=== PATIENT | male | born 1935 | race Caucasian/White ===

== ENCOUNTER 2018-03-02 12:56 | Inpatient (IN) | payer MEDICARE ==
[~2018-03-02] VITALS: Ht 172.7 cm; Wt 74.8 kg
[2018-03-02 13:10] VITALS: BP 138/87
--- NOTE | 2018-03-02 13:49 | Diagnostic Imaging Report ---
EXAM: CT Pelvis Without Intravenous Contrast CLINICAL HISTORY: TRAUMA TECHNIQUE: Axial computed tomography images of the pelvis without intravenous contrast. CTDI is 14.66 mGy and DLP is 455 mGy-cm. One or more of the following dose reduction techniques were used: automated exposure control, adjustment of the mA and/or kV according to patient size, use of iterative reconstruction technique. COMPARISON: No relevant prior studies available. FINDINGS: Bowel: Sigmoid colonic diverticulosis with mild wall thickening. No adjacent inflammatory stranding. No free air or fluid collections. No obstruction. Appendix: No findings to suggest acute appendicitis. Intraperitoneal space: No free air or free fluid. Bladder: Unremarkable. No stones. Reproductive: Diffusely enlarged prostate gland, impressing upon the urinary bladder base. Bones/joints: Degenerative disc space loss in the visualized lower lumbar spine and lumbosacral junction. No acute displaced fracture is identified in the pelvis. No dislocation. Soft tissues: Tiny fat-containing umbilical hernia. Vasculature: Unremarkable. No lower abdominal aortic aneurysm. Lymph nodes: Unremarkable. No enlarged lymph nodes. IMPRESSION: 1. No acute traumatic findings in the pelvis. No displaced fractures identified. 2. Sigmoid colonic diverticulosis with mild wall thickening, which may be related to underdistention versus a low-grade diverticulitis. No adjacent inflammatory stranding. No free air or fluid collections. 3. Prostate hypertrophy.
[2018-03-02] MEDS ORDERED: Sodium Chloride 500ML 500 ML IV ONE (14:00)
--- NOTE | 2018-03-02 14:03 | Emergency Room Report ---
History of Present Illness General Chief Complaint: Multiple Trauma/Fall Source: Patient, Medical Record, EMS Present Illness HPI Patient presents with complaints of possible pelvic pain Patient himself has underlying dementia Reports from the paramedics show that the patient had a possible fall 2 days ago Apparently did not have significant deficit at that time however more recently has become less mobile There was no reports of chest pain however again patient not able to provide appropriate history has some rambling of thought process limits the history of present illness significantly Allergies: Coded Allergies: No Known Allergies (Unverified , 03/02/18) Patient History Limited by: medical condition Past Medical History: see triage record Pertinent Family History: unable to obtain Reviewed Nursing Documentation: PMH: Agreed; PSxH: Agreed Nursing Documentation-PMH Past Medical History: No History, Except For Hx Hypertension: Yes Review of Systems All Other Systems: limited - Other than the ones mentioned in the history of present illness all others are reviewed however they do stay limited due to the patient's mental status Physical Exam Vital Signs Date Time Temp Pulse Resp B/P (MAP) Pulse Ox O2 Delivery O2 Flow Rate FiO2 03/02/18 12:58 98.2 108 16 149/95 94 Nasal Cannula 2.0 98.2 Sp02 EP Interpretation: reviewed, normal General Appearance: mild distress - Appears uncomfortable Head: normocephalic, atraumatic Eyes: bilateral eye PERRL, bilateral eye EOMI ENT: dry mucus membranes Neck: supple, thyroid normal Respiratory: crackles - Both lower lobes Cardiovascular #1: regular rate, rhythm, no edema Gastrointestinal: non tender, soft Musculoskeletal: other - Palpation of the extremities and pelvic rock were negative patient does not follow my commands specifically, however no obvious focal deficit, Neurologic: responsive - Patient attempts to follow commands his speech is somewhat slurred and appears pressured, Skin: other - Poor turgor Lymphatic: no adenopathy Medical Decision Making ER Course Patient's initial imaging study does not reveal any acute fracture however given the patient's general appearance Medical condition Multiple differentials are considered Patient has extensive studies initiated and signed out to oncoming physician Last Vital Signs Date Time Temp Pulse Resp B/P (MAP) Pulse Ox O2 Delivery O2 Flow Rate FiO2 03/02/18 13:10 98.2 101 17 138/87 95 Room Air 98.2 03/02/18 12:58 2.0 Signed Out To: Dr rosenbaum at 14:00 Referrals: Jose Wilkinson MD (PCP) Serentiy Betancourt DO Mar 02, 2018 14:03
--- NOTE | 2018-03-02 14:12 | Emergency Room Report ---
Physical Exam The patient presents after fall 2 days ago with weakness and left hip and leg pain. Please see the above note from Dr. Kennedy. He presents from [facility]. Transporting EMS had Cris Coma Scale of 11. 3 eyes 3 motor 3 verbal. He was agitated and confused with a history of dementia at baseline at the time of her fall 2 days ago he wasn't complaining of any pain. In the morning he couldn't get out of bed and complained of right leg pain and hip pain. His vital signs were good on the way in with O2 sat of 99%. Patient does not answer questions. He's never been to our facility and no other records are available. He had ativan and topical creams in his orders. Vital Signs Date Time Temp Pulse Resp B/P (MAP) Pulse Ox O2 Delivery O2 Flow Rate FiO2 03/02/18 12:58 98.2 108 16 149/95 94 Nasal Cannula 2.0 98.2 Sp02 EP Interpretation: reviewed, normal General Appearance: other - GCS 13 = eyes closed, confused, Chronically Ill Head: normocephalic, atraumatic Eyes: bilateral eye normal inspection, bilateral eye PERRL ENT: dry mucus membranes Neck: full range of motion, supple, no bony tend Respiratory: chest non-tender, lungs clear, normal breath sounds Cardiovascular #1: regular rate, rhythm Cardiovascular #2: 2+ radial (L) Gastrointestinal: normal inspection, normal bowel sounds, soft, no guarding, no rebound, tenderness - minimal, diffuse Genitourinary: no CVA tenderness Musculoskeletal: back normal, other - Painful passive range of motion of bilateral hips. He will not identify where the pain is coming from. Knees appear nontender. Neurologic: alert, responsive, motor strength/tone normal, DTRs symmetric, sensory intact, oriented - X1 Psychiatric: depressed affect - eyes closed Skin: normal inspection, warm/dry Medical Decision Making Diagnostic Impression: Primary Impression: Fall Qualified Codes: W19.XXXA - Unspecified fall, initial encounter Additional Impressions: Left lower lobe pulmonary infiltrate Leukocytosis Qualified Codes: D72.829 - Elevated white blood cell count, unspecified Fluid collection right frontoparietal region - chronic subdural hygroma Dehydration ER Course Patient presents post fall 2 days ago. He is obviously dehydrated at this time. Differential includes fracture, contusion, doubt, acute myocardial infarction, electrolyte imbalance amongst others. The patient be evaluated with CT of the pelvis. Also he will undergo CT the head chest x-ray and labs including lactate and urinalysis. He will receive IV hydration. EKG with a left bundle-branch block. CT pelvis without fracture, has diverticulosis. CT head with a fluid collection right frontoparietal region was likely chronic subdural hygroma. Labs with leukocytosis. Negative lactate and troponin. TSH normal. Due to the reading of the possible infiltrate on the left base and leukocytosis antibiotics are begun. Patient admitted to telemetry Dr. Wilkinson Laboratory Tests Test 03/02/18 14:25 White Blood Count 15.2 K/UL (4.8-10.8) H Red Blood Count 5.74 M/UL (4.70-6.10) Hemoglobin 16.3 G/DL (14.2-18.0) Hematocrit 50.2 % (42.0-52.0) Mean Corpuscular Volume 88 FL (80-99) Mean Corpuscular Hemoglobin 28.4 PG (27.0-31.0) Mean Corpuscular Hemoglobin Concent 32.5 G/DL (32.0-36.0) Red Cell Distribution Width 13.6 % (11.6-14.8) Platelet Count 231 K/UL (150-450) Mean Platelet Volume 7.4 FL (6.5-10.1) Neutrophils (%) (Auto) % (45.0-75.0) Lymphocytes (%) (Auto) % (20.0-45.0) Monocytes (%) (Auto) % (1.0-10.0) Eosinophils (%) (Auto) % (0.0-3.0) Basophils (%) (Auto) % (0.0-2.0) Differential Total Cells Counted 100 Neutrophils % (Manual) 78 % (45-75) H Lymphocytes % (Manual) 12 % (20-45) L Monocytes % (Manual) 10 % (1-10) Eosinophils % (Manual) 0 % (0-3) Basophils % (Manual) 0 % (0-2) Band Neutrophils 0 % (0-8) Platelet Estimate Adequate Platelet Morphology Normal Red Blood Cell Morphology Normal Urine Color [place] Urine Appearance Clear Urine pH 5 (4.5-8.0) Urine Specific [place] 1.020 (1.005-1.035) Urine Protein 1+ (NEGATIVE) H Urine Glucose (UA) Negative (NEGATIVE) Urine Ketones 2+ (NEGATIVE) H Urine Blood 5+ (NEGATIVE) H Urine Nitrite Negative (NEGATIVE) Urine Bilirubin Negative (NEGATIVE) Urine Ictotest Negative (NEGATIVE) Urine Urobilinogen Normal MG/DL (0.0-1.0) Urine Leukocyte Esterase 1+ (NEGATIVE) H Urine RBC 15-20 /HPF (0 - 0) H Urine WBC 2-4 /HPF (0 - 0) Urine Squamous Epithelial Cells Occasional /LPF Urine Bacteria Occasional /HPF (NONE) Sodium Level 144 MMOL/L (136-145) Potassium Level 4.3 MMOL/L (3.5-5.1) Chloride Level 107 MMOL/L (98-107) Carbon Dioxide Level 28 MMOL/L (21-32) Anion Gap 9 mmol/L (5-15) Blood Urea Nitrogen 19 mg/dL (7-18) H Creatinine 1.1 MG/DL (0.55-1.30) Estimate Glomerular Filtration Rate mL/min (>60) Glucose Level 118 MG/DL (74-106) H Lactic Acid Level 2.00 mmol/L (0.4-2.0) Uric Acid 5.6 MG/DL (2.6-7.2) Calcium Level 9.7 MG/DL (8.5-10.1) Total Bilirubin 1.3 MG/DL (0.2-1.0) H Direct Bilirubin 0.2 MG/DL (0.0-0.3) Aspartate Amino Transferase (AST) 45 U/L (15-37) H Alanine Aminotransferase (ALT) 48 U/L (12-78) Alkaline Phosphatase 127 U/L (46-116) H Total Creatine Kinase 684 U/L (26-308) H Creatine Kinase MB 3.3 NG/ML (0.0-3.6) Creatine Kinase MB Relative Index 0.4 Troponin I 0.000 ng/mL (0.000-0.056) Total Protein 8.2 G/DL (6.4-8.2) Albumin 3.9 G/DL (3.4-5.0) Globulin 4.3 g/dL Albumin/Globulin Ratio 0.9 (1.0-2.7) L Lipase 99 U/L (73-393) Thyroid Stimulating Hormone (TSH) 0.947 uiU/mL (0.358-3.740) EKG Diagnostic Results Rate: normal Rhythm: NSR ST Segments: no acute changes - LBBB Rhythm Strip Diag. Results EP Interpretation: yes Rhythm: NSR, no PVC's, no ectopy Chest X-Ray Diagnostic Results Chest X-Ray Diagnostic Results : Chest X-Ray Ordered: Yes # of Views/Limited/Complete: 1 View Indication: Other EP Interpretation: Yes Interpretation: no consolidation, no effusion, no pneumothorax, other - cardiomegally Impression: Other CT/MRI/US Diagnostic Results CT/MRI/US Diagnostic Results #1: Imaging Test Ordered: hip Impression no fx - diverticulosis CT/MRI/US Diagnostic Results #2: Imaging Test Ordered: head Impression 4 mm thick isodense hypodense fluid collection in the right frontoparietal region likely a chronic subdural hygroma. Scattered ventricular and subcortical white matter hypodensities related to chronic small vessel disease. Generalized lying loss. Last Vital Signs Date Time Temp Pulse Resp B/P (MAP) Pulse Ox O2 Delivery O2 Flow Rate FiO2 03/03/18 04:00 98.2 70 17 130/74 (92) 94 98.2 03/02/18 23:54 Room Air 03/02/18 18:18 2.0 Status: improved Disposition: ADMITTED INPATIENT Condition: Serious Referrals: Jose Wilkinson MD (PCP) Andre Myers M.D. Mar 02, 2018 14:11
[2018-03-02 14:52] LABS: HEMATOCRIT 50.2 % (42.0-52.0); HEMOGLOBIN 16.3 G/DL (14.2-18.0); MEAN CORPUSCULAR VOLUME 88 FL (80-99); PLATELET COUNT 231 K/UL (150-450); RED BLOOD COUNT 5.74 M/UL (4.70-6.10); RED CELL DISTRIBUTION WIDTH 13.6 % (11.6-14.8); WHITE BLOOD COUNT 15.2 K/UL (4.8-10.8)
[2018-03-02 14:54] LABS: APPEARANCE,URINE CLEAR; COLOR,URINE AMBER
[2018-03-02 14:55] LABS: BILIRUBIN, URINE NEGATIVE (NEGATIVE); GLUCOSE, URINE (UA) NEGATIVE (NEGATIVE); KETONES,URINE 2+ (NEGATIVE); LEUKOCYTE ESTERASE ,URINE 1+ (NEGATIVE); NITRITE,URINE NEGATIVE (NEGATIVE); PH,URINE 5 (4.5-8.0); PROTEIN,URINE 1+ (NEGATIVE); UROBILINOGEN,URINE NORMAL MG/DL (0.0-1.0)
[2018-03-02 15:03] VITALS: BP 149/86
[2018-03-02 15:11] LABS: ANION GAP 9 mmol/L (5-15); BLOOD UREA NITROGEN 19 mg/dL (7-18); CALCIUM 9.7 MG/DL (8.5-10.1); CARBON DIOXIDE 28 MMOL/L (21-32); CHLORIDE 107 MMOL/L (98-107); CREATININE 1.1 MG/DL (0.55-1.30); POTASSIUM 4.3 MMOL/L (3.5-5.1); SODIUM 144 MMOL/L (136-145)
--- NOTE | 2018-03-02 15:14 | Diagnostic Imaging Report ---
EXAM: CT Head Without Intravenous Contrast CLINICAL HISTORY: Altered mental status TECHNIQUE: Axial computed tomography images of the head/brain without intravenous contrast. CTDI is 70.53 mGy and DLP is 3093 mGy-cm. One or more of the following dose reduction techniques were used: automated exposure control, adjustment of the mA and/or kV according to patient size, use of iterative reconstruction technique. COMPARISON: No relevant prior studies available. FINDINGS: Brain: 4 mm thick isodense/hypodense extra-axial collection along the right frontoparietal region (measured on series 3 image 17), likely a chronic subdural hygroma. Mild generalized parenchymal volume loss, likely age-related. Scattered periventricular and subcortical white matter hypodensities. No mass effect or midline shift. Ventricles: Unremarkable. No ventriculomegaly. Bones/joints: Unremarkable. No acute fracture. Soft tissues: Unremarkable. Sinuses: Unremarkable as visualized. No acute sinusitis. Mastoid air cells: Unremarkable as visualized. No mastoid effusion. IMPRESSION: 1. 4 mm thick isodense/hypodense fluid collection in the right frontoparietal region, likely a chronic subdural hygroma. 2. Scattered periventricular and subcortical white matter hypodensities likely related to chronic small vessel disease changes. 3. Mild generalized cerebral parenchymal volume loss, likely age- related.
[2018-03-02 15:25] LABS: ALANINE AMINOTRANSFERASE 48 U/L (12-78); ALBUMIN 3.9 G/DL (3.4-5.0); ALBUMIN/GLOBULIN RATIO 0.9 (1.0-2.7); ALKALINE PHOSPHATASE 127 U/L (46-116); ASPARTATE AMINO TRANSFERASE 45 U/L (15-37); BILIRUBIN,TOTAL 1.3 MG/DL (0.2-1.0); CKMB 3.3 NG/ML (0.0-3.6); CREATINE KINASE 684 U/L (26-308)
--- NOTE | 2018-03-02 15:25 | Diagnostic Imaging Report ---
EXAM: XR Chest, 1 View CLINICAL HISTORY: Chest pain TECHNIQUE: Frontal view of the chest. COMPARISON: No relevant prior studies available. FINDINGS: Limitations: Exam degraded by rotation. Lungs: Sub-segmental atelectasis versus infiltrate in the left lung base/retrocardiac region. Right lung appears clear. Pleural space: Unremarkable. No pneumothorax. Heart: Cardiac silhouette appears enlarged, however this may be related to the portable film technique. Mediastinum: Unremarkable. Bones/joints: Unremarkable. Vasculature: Atherosclerotic calcifications are noted within the aortic arch. IMPRESSION: Sub-segmental atelectasis versus infiltrate in the left lung base/retrocardiac region.
[2018-03-02 15:27] LABS: BILIRUBIN,DIRECT 0.2 MG/DL (0.0-0.3)
[2018-03-02] MEDS ORDERED: LORAZEPAM1 MG ORAL (15:38)
[2018-03-02] MEDS ORDERED: HYDROCORTISONE30 G2 TP (15:38)
[2018-03-02] MEDS ORDERED: MIRTAZAPINE15 M3 ORAL (15:38)
[2018-03-02] MEDS ORDERED: CICLOPIROX15 GM TP (15:38)
[2018-03-02] MEDS ORDERED: Piperacillin/Tazobactam 3.375 GM in NS 110 ML IVPB ONE (16:00)
[2018-03-02 17:06] VITALS: BP 148/93
[2018-03-02 18:19] VITALS: BP 130/85
[2018-03-02 20:41] VITALS: BP 132/68
[2018-03-02] MEDS: Potassium Chloride 30 MEQ in 1/2 NS 1000ml 1,000 ML IV SCH (22:26)
[2018-03-02] MEDS: Heparin 5000 units/ml inj SUBQ SCH (22:29)
[2018-03-03] VITALS: BP_SYST 132; BP_SYST 134; BP_DIAS 68; BP_DIAS 83
[2018-03-03 04:00] VITALS: BP 130/74
[2018-03-03 06:25] LABS: BASOPHILS % (AUTO) 0.4 % (0.0-2.0); EOSINOPHILS % (AUTO) 1.8 % (0.0-3.0); HEMATOCRIT 44.6 % (42.0-52.0); HEMOGLOBIN 14.7 G/DL (14.2-18.0); LYMPHOCYTES % (AUTO) 14.6 % (20.0-45.0); MEAN CORPUSCULAR VOLUME 88 FL (80-99); NEUTROPHILS % (AUTO) 73.3 % (45.0-75.0); PLATELET COUNT 171 K/UL (150-450); RED BLOOD COUNT 5.05 M/UL (4.70-6.10); RED CELL DISTRIBUTION WIDTH 13.5 % (11.6-14.8); WHITE BLOOD COUNT 10.2 K/UL (4.8-10.8)
[2018-03-03 06:28] LABS: ANION GAP 7 mmol/L (5-15); BLOOD UREA NITROGEN 16 mg/dL (7-18); CALCIUM 8.8 MG/DL (8.5-10.1); CARBON DIOXIDE 27 MMOL/L (21-32); CHLORIDE 108 MMOL/L (98-107); POTASSIUM 4.3 MMOL/L (3.5-5.1); SODIUM 142 MMOL/L (136-145)
[2018-03-03] MEDS ORDERED: Gadavist 7.5mMol/7.5ml vial IV PRN (08:15)
[2018-03-03 08:29] VITALS: BP 132/78
[2018-03-03] MEDS: Heparin 5000 units/ml inj SUBQ SCH ×2 (09:18→20:51)
[2018-03-03 12:05] VITALS: BP 128/75
--- NOTE | 2018-03-03 13:52 | Cardiology Report ---
APPROVED REPORT EKG Measurement Heart [id number] Normal sinus rhythm Left axis deviation Left bundle branch block Abnormal ECG
[2018-03-03] MEDS: Potassium Chloride 30 MEQ in 1/2 NS 1000ml 1,000 ML IV SCH (15:47)
[2018-03-03 16:14] VITALS: BP 134/89
--- NOTE | 2018-03-03 16:45 | History and Physical Report ---
DATE OF ADMISSION: 03/02/2018 CHIEF COMPLAINT: Altered level of consciousness and failure to thrive. HISTORY OF PRESENT ILLNESS: This is an 82-year-old male who I so first this week. This is a new resident to [facility] to [facility] and [facility]. The patient is confused at his baseline. The patient became more confused during the next days and was transferred to the ER. Currently, he is unable to give any further information. The patient had an extensive workup done in the ER, which demonstrated essentially pneumonia. He was started on IV fluids and IV antibiotics and is admitted to regular floor. PAST MEDICAL HISTORY: Organic brain syndrome. MEDICATIONS: Home medications, Loprox cream, hydrocortisone cream, lorazepam p.r.n. and Remeron. ALLERGIES: No known drug allergies. FAMILY HISTORY: Unable to obtain due to his mental status. SOCIAL HISTORY: Unable to obtain due to his mental status. REVIEW OF SYSTEMS: Unable to obtain due to his mental status. PHYSICAL EXAMINATION: GENERAL: This is an elderly cachectic male, who is in no acute distress. VITAL SIGNS: Blood pressure 130/74, pulse 70 and regular, respirations 17, and temperature 98.2 degrees oral. HEENT: The head is normocephalic and atraumatic. Pupils are equal, round, and reactive to light and accommodation consensually. NECK: Supple. Trachea midline. There was no lymphadenopathy or thyromegaly. LUNGS: He has bilateral wheezes. HEART: Regular rate and rhythm without rubs, murmurs, or gallops. ABDOMEN: Soft and nontender. Bowel sounds were active. EXTREMITIES: No clubbing, cyanosis, or edema. NEUROLOGICAL: He is alert, but completely confused and nonverbal. LABORATORY AND ANCILLARY DATA: Yesterday on admission, his white count was elevated at 16,200 and today 10,200, admission hemoglobin 16.3 and today 14.7. Chemistry is unremarkable. Lactic acid on admission 2, trending down to 1.6. Urinalysis, 15 to 20 rbc's, otherwise unremarkable. CT scan of the pelvis, no evidence of fracture. There is prostate hypertrophy. There is evidence of sigmoid colon diverticulosis with mild wall thickening. Head CT without contrast, there is a 4 mm thick hyperdense fluid collection in the right frontoparietal region, likely chronic subdural hygroma. There are scattered periventricular subcortical white matter hypodensities likely related to chronic small vessel disease. There is mild generalized cerebral parenchymal volume loss likely age related. Chest x-ray, subsegmental atelectasis versus infiltrate in the left lung. ASSESSMENT: 1. Suspected pneumonia. 2. Rule out new cerebrovascular event. PLAN: 1. IV antibiotics. 2. IV fluids. 3. Neurology consult. 4. MRI with MRA of the brain with IV contrast. Jose Wilkinson M.D. DR: AC JOB#: [id number] CC:
[2018-03-03 20:00] VITALS: BP 150/97
[2018-03-03] MEDS ORDERED: Tubing IV Secondary IV ONE (21:06)
[2018-03-04 00:10] VITALS: BP 142/61
[2018-03-04 00:11] VITALS: BP 135/95
[2018-03-04 03:58] VITALS: BP 144/91
[2018-03-04] MEDS: Potassium Chloride 30 MEQ in 1/2 NS 1000ml 1,000 ML IV SCH ×2 (04:52→22:04)
--- NOTE | 2018-03-04 08:28 | General Progress Note ---
Assessment/Plan Status Narrative Pneumonia IV ABx AMS - R/O New CVA. MRI ordered. DW Speech Pathologist. Subjective Allergies: Coded Allergies: No Known Allergies (Unverified , 03/02/18) Subjective No new c/o Objective Last 24 Hour Vital Signs Date Time Temp Pulse Resp B/P (MAP) Pulse Ox O2 Delivery O2 Flow Rate FiO2 03/04/18 03:58 97.4 67 18 144/91 (108) 93 97.4 03/04/18 00:11 97.0 83 17 135/95 (108) 95 97.0 03/03/18 22:00 Room Air 03/03/18 20:00 99.0 86 15 150/97 (114) 96 99.0 03/03/18 16:14 97.9 74 18 134/89 (104) 90 97.9 03/03/18 12:05 97.8 71 18 128/75 (92) 94 97.8 03/03/18 10:00 Room Air 03/03/18 08:29 97.8 65 18 132/78 (96) 95 97.8 Intake and Output 03/03/18 03/04/18 19:00 07:00 Intake Total 845 ml 685 ml Output Total 700 ml 400 ml Balance 145 ml 285 ml Intake IV Total 845 ml 685 ml Output Urine Total 700 ml 400 ml Height (Feet): 5 Height (Inches): 8.00 Weight (Pounds): 170 Objective Cv Rr Lungs few B nicole Taylor SNT. Bs + E No CCe . Neuro confused. Jose Wilkinson MD Mar 04, 2018 08:28
[2018-03-04 08:32] VITALS: BP 142/80
[2018-03-04] MEDS: Heparin 5000 units/ml inj SUBQ SCH ×2 (09:13→21:13)
[2018-03-04] MEDS ORDERED: LORazepam Inj 2mg/ml 1ml IV SCH (09:45)
--- NOTE | 2018-03-04 11:23 | Consultation ---
History of Present Illness General Date patient seen: Mar 04, 2018 Chief Complaint: Multiple Trauma/Fall Present Illness HPI 82-year-old male who is a resident to [facility] to board and care. The pt is confused and has waxing and waning of consciousness agitated Allergies: Coded Allergies: No Known Allergies (Unverified , 03/02/18) Medication History Scheduled Ciclopirox Olamine* (Loprox*), 15 GM TP EVERY OTHER DAY, (Reported) Hydrocortisone (Hydrocortisone Cream 2.5%), 1 APPLIC TP BID, (Reported) Mirtazapine* (Mirtazapine*), 7.5 MG ORAL BEDTIME, (Reported) Scheduled PRN Lorazepam* (Lorazepam*), 1 MG ORAL EVERY 6 HOURS PRN for For Anxiety, (Reported) Patient History Limited by: medical condition History Provided By: Patient, Medical Record, PMD Healthcare decision maker Resuscitation status Full Code Advanced Directive on File Past Medical/Surgical History Past Medical/Surgical History: (1) Failure to thrive (2) Dehydration (3) Leukocytosis (4) Fall (5) Left lower lobe pulmonary infiltrate Review of Systems Psychiatric: Reports: prior hx, anxiety, depressed feelings Physical Exam General Appearance: no apparent distress, alert, confused, agitated Last 24 Hour Vital Signs Date Time Temp Pulse Resp B/P (MAP) Pulse Ox O2 Delivery O2 Flow Rate FiO2 03/04/18 09:00 Room Air 03/04/18 08:32 96.6 70 18 142/80 (100) 94 96.6 03/04/18 03:58 97.4 67 18 144/91 (108) 93 97.4 03/04/18 00:11 97.0 83 17 135/95 (108) 95 97.0 03/03/18 22:00 Room Air 03/03/18 20:00 99.0 86 15 150/97 (114) 96 99.0 03/03/18 16:14 97.9 74 18 134/89 (104) 90 97.9 03/03/18 12:05 97.8 71 18 128/75 (92) 94 97.8 Intake and Output 03/03/18 03/04/18 19:00 07:00 Intake Total 845 ml 685 ml Output Total 700 ml 400 ml Balance 145 ml 285 ml Intake IV Total 845 ml 685 ml Output Urine Total 700 ml 400 ml Height (Feet): 5 Height (Inches): 8.00 Weight (Pounds): 170 Medications Current Medications Medications (Trade) Dose Ordered Sig/Deni Route PRN Reason Start Time Stop Time Status Last Admin Dose Admin Gadobutrol (Gadavist) 7.5 mmol NOW PRN IV Radiology Procedure 03/03/18 08:15 03/07/18 08:14 Heparin Sodium (Porcine) (Heparin 5000 units/ml) 5,000 units EVERY 12 HOURS SUBQ 03/02/18 21:00 04/01/18 20:59 03/04/18 09:13 Levofloxacin 100 ml @ 100 mls/hr Q24H IVPB 03/02/18 21:00 03/09/18 20:59 03/03/18 20:46 Potassium Chloride 30 meq/ Sodium Chloride 1,015 ml @ 65 mls/hr [id number] IV 03/02/18 20:45 04/01/18 20:44 03/04/18 04:52 Assessment/Plan Status Narrative Assessment/Plan encephalopathy due to [facility] [place] Anxiety d/o Ativan prn risprdal 1mg qhs Faviola Soliman MD Mar 04, 2018 11:23
--- NOTE | 2018-03-04 13:36 | Diagnostic Imaging Report ---
Indication: Head trauma 4 days earlier. Headache Technique: The head was imaged in a 1.5 Manisha magnet. Sequences obtained include sagittal and axial T1 FLAIR, axial T2 fast spin echo with fat saturation, axial T2 FLAIR, diffusion and ADC map. Comparison: CT head 03/02/2018 Findings: There is moderate prominence of the sulci, ventricles, and basal cisterns consistent with atrophy. Moderate, nonspecific T2 hyperintensity noted within white matter. This may be due to chronic small vessel disease. There is no restricted diffusion. Alves-white differentiation is normal. There is no mass effect, midline shift, edema, or hemorrhage. There are no abnormal extra-axial or intra-axial fluid collections. The corpus callosum and sella are unremarkable. The brainstem and cerebellum are unremarkable. Bone marrow signal within the visualized osseous structures appears age appropriate and unremarkable otherwise. Some image degradation due to motion. Impression: No acute intracranial findings. No subdural collection identified. Moderate atrophy and evidence of chronic small vessel disease involving white matter tracts.
[2018-03-04 15:40] VITALS: BP 130/89
[2018-03-04 20:00] VITALS: BP 142/97
--- NOTE | 2018-03-04 20:35 | Consultation ---
Consult Note Consult Note NEUROLOGY CONSULTATION: Full note dictated #[id number] 82 y/o, RH, CM with nebulous PH. He lives in a NH where he was noted to be more confused and agitated and was exhibiting failure to thrive. [place] [facility] [place] and was found to be dehydrated and had a pneumonia and UTI. At this time he is cognitively impoverished and aphasic making it impossible to obtain further history. ON EXAM: Severely aphasic. Problems with memory, VSF, HCF and language. Moves all 4s with good strength. Symmetric DTRs IMPRESSION: Underlying dementia with superimposed encephalopathy. MRI of brain with significant atrophy and DWM disease. REC: w/u for treatable MS change. Rx of infections. Seroquel 25 mg q HS for behavior modification. Ceci Egan M.D., M.S.P.H. CECI EGAN Mar 04, 2018 20:35
--- NOTE | 2018-03-04 22:30 | Consultation ---
DATE OF CONSULTATION: 03/04/2018 NEUROLOGY CONSULTATION CONSULTING PHYSICIAN: Quang Egan M.D. REQUESTING PHYSICIAN: Jose Wilkinson M.D. HISTORY: Mr. Govind Rocha is an 82-year-old, right-handed, gentleman with a nebulous past history. He apparently lives in a halfway where he was noted to become more confused and agitated and was exhibiting behavior consistent with failure to thrive. He was brought into the [facility] emergency room and was found to be dehydrated and had a pneumonia and in addition a urinary tract infection. He has since been rehydrated and given appropriate antibiotics and has improved minimally. He however at this time, continues to be cognitively impoverished and significantly aphasic making it impossible to obtain any further history. PAST MEDICAL HISTORY: Significant for "organic brain syndrome". FAMILY HISTORY: Unavailable. PERSONAL HISTORY: Home: He lives in a halfway. Work: He is unable to tell me what kind of work he did. Habits: He said that he used to smoke and drink in the past. MEDICATIONS: Present medications include mirtazapine, lorazepam, heparin for DVT prophylaxis, levofloxacin and potassium chloride. PHYSICAL EXAMINATION: GENERAL: He is a well-developed, well-nourished, gentleman, lying in bed, in no acute distress. VITAL SIGNS: Pulse 82/minute, blood pressure 130/89 mmHg, respirations 18/minute, and temperature 97 degrees Fahrenheit. HEAD: Normocephalic and atraumatic. EENT: Examination benign. NECK: No neck rigidity was observed. NEUROLOGICAL EXAMINATION: MENTAL STATUS EXAMINATION: He was awake and alert. He was oriented to self only. He was significantly aphasic making further mental status testing quite difficult. He was unable to repeat 3 words and could not remember them in 1 minute and 3 minutes. He was unable to tell me who the present President was and who prior presidents were. He was unable to do simple mathematical problems. He was unable to do simple visuospatial problems. SPEECH: He had a moderate dysarthria. LANGUAGE: He had problems with comprehension, repitition, naming and expression of language. CRANIAL NERVE EXAMINATION: II: The visual jurado were intact on confrontation testing. III, IV & : The external ocular movements were full and the pupils 3 mm in diameter, equal, round, regular, and reactive to light. V: He had normal facial sensations and the temporales, masseters, and pterygoids function normally. VII: He had normal facial expressions and no facial asymmetry. VIII: He was able to hear well bilaterally and had no nystagmus. IX: The palate moved symmetrically on phonation. X: He had no hoarseness of voice. XI: The sternocleidomastoids and trapezii functioned normally. XII: The tongue was in the midline without any fasciculations or atrophy. MOTOR SYSTEM: The tone was normal in all four extremities. Examination of muscle mass revealed no focal wasting. Examination of power revealed grade 5/5 power. SENSORY EXAMINATION: He was unable to cooperate for sensory testing, but he did feel painful stimuli in all four extremities. REFLEXES: 1++ and bilaterally symmetrical at the biceps, triceps, brachioradialis, and knees, 0 at both ankles. The plantar responses were flexor bilaterally. COORDINATION, STANCE & GAIT: Could not be tested. DIAGNOSTIC IMPRESSION: 1. Mr. Govind Rocha is an 82-year-old, right-handed, gentleman with a nebulous past history who lives in a halfway and was noted to be increasingly confused and agitated exhibiting behavior consistent with failure to thrive. On being evaluated in the emergency room, he was found to be dehydrated and had a pneumonia and urinary tract infection. 2. On neurological examination at this time, he is severely aphasic making further mental status testing quite difficult. He demonstrates significant problems with memory, visuospatial function, higher cognitive function, and language. He moves all four extremities with good strength and his cranial nerves do not reveal any asymmetries. The deep tendon reflexes are symmetric, but globally diminished. 3. An MRI scan of the brain performed on 03/04/2018 reveals significant atrophy and moderate deep white matter changes, however, is no acute pathology seen. 4. Laboratory data on admission revealed that his WBC count was elevated to 15,200 and his hemoglobin was up at 16.3. The chemistry panel revealed that his BUN was elevated to 19. In addition, his total bilirubin was elevated to 1.3, AST elevated at 45, alkaline phosphatase elevated at 127 and the CK was elevated at 684. His urinalysis revealed 1+ leukocyte esterase, 15-20 RBCs, and 2-4 WBCs per high-power field. 5. 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 The encephalopathy is most probably related to his acute infectious processes, namely the pneumonia and urinary tract infection, and in addition the dehydration could also have contributed. RECOMMENDATIONS: 1. Agree with management thus far. 2. The patient should be worked up thoroughly for other treatable causes of altered mental state. 3. Treatment of infectious processes as being done right at this point in time. 4. If there are no absolute contraindications, the patient may benefit from low-dose Seroquel namely 25 mg at bedtime for behavior modification. 5. The patient should be kept as active as possible during the day. Thank you for entrusting me with the care of Mr. Rocha. I shall follow him with you. Quang Egan M.D., M.S.P.H. DR: MOHAN JOB#: [id number] MTDMartin
[2018-03-05 04:11] VITALS: BP 141/97
[2018-03-05 07:59] VITALS: BP 123/80
--- NOTE | 2018-03-05 08:55 | General Progress Note ---
Assessment/Plan Assessment/Plan MRI + Neuro noted. Severe dementia. Pneumonia - IV Abx. DW Speech Thrapy. Subjective Allergies: Coded Allergies: No Known Allergies (Unverified , 03/02/18) Subjective No new c/o Objective Last 24 Hour Vital Signs Date Time Temp Pulse Resp B/P (MAP) Pulse Ox O2 Delivery O2 Flow Rate FiO2 03/05/18 07:59 97.7 100 20 123/80 (94) 100 97.7 03/05/18 04:11 98.2 83 18 141/97 (112) 96 98.2 03/04/18 21:00 Room Air 03/04/18 20:00 97.7 92 18 142/97 (112) 94 97.7 03/04/18 15:40 97.0 82 18 130/89 (103) 95 97.0 03/04/18 09:00 Room Air Intake and Output 03/04/18 03/05/18 19:00 07:00 Intake Total 1020 ml 815 ml Output Total 500 ml Balance 520 ml 815 ml Intake Oral 240 ml 220 ml IV Total 780 ml 595 ml Output Urine Total 500 ml # Voids 5 Laboratory Tests 03/04/18 20:50: Erythrocyte Sedimentation Rate 21H, Hemoglobin A1c 5.3, Vitamin B12 Level 699, Vitamin D 25-Hydroxy [Pending], 25-Hydroxy Vitamin D2 [Pending], 25-Hydroxy Vitamin D3 [Pending], Folate 16.1, Thyroid Stimulating Hormone (TSH) 2.962, Rapid Plasma Reagin [Pending] Height (Feet): 5 Height (Inches): 8.00 Weight (Pounds): 170 Objective Cv Rr Lungs few B ronchi Abd SNT. Bs + E No CCe . Neuro confused. Jose Wilkinson MD Mar 05, 2018 08:55
[2018-03-05] MEDS ORDERED: LORazepam Inj 2mg/ml 1ml IM SCH ×2 (09:00→12:48)
[2018-03-05] MEDS ORDERED: DiphenhydrAMINE 50mg/ml Inj IM SCH ×2 (09:00→12:48)
[2018-03-05] MEDS ORDERED: Haloperidol 5mg/ml Inj IM SCH (09:00)
[2018-03-05] MEDS: Heparin 5000 units/ml inj SUBQ SCH ×2 (09:00→20:09)
[2018-03-05] MEDS: Potassium Chloride 30 MEQ in 1/2 NS 1000ml 1,000 ML IV SCH ×2 (11:13→14:18)
[2018-03-05 11:46] VITALS: BP 134/95
--- NOTE | 2018-03-05 12:40 | General Progress Note ---
Assessment/Plan Assessment/Plan encephalopathy due to [facility] Anxiety d/o Ativan prn risprdal 1mg qhs Subjective Date patient seen: Mar 03, 2018 Neurologic/Psychiatric: Reports: anxiety, depressed, emotional problems Allergies: Coded Allergies: No Known Allergies (Unverified , 03/02/18) Objective Last 24 Hour Vital Signs Date Time Temp Pulse Resp B/P (MAP) Pulse Ox O2 Delivery O2 Flow Rate FiO2 03/05/18 11:46 97.0 93 20 134/95 (108) 96 97.0 03/05/18 09:00 Room Air 03/05/18 07:59 97.7 100 20 123/80 (94) 100 97.7 03/05/18 04:11 98.2 83 18 141/97 (112) 96 98.2 03/04/18 21:00 Room Air 03/04/18 20:00 97.7 92 18 142/97 (112) 94 97.7 03/04/18 15:40 97.0 82 18 130/89 (103) 95 97.0 Intake and Output 03/04/18 03/05/18 19:00 07:00 Intake Total 1020 ml 815 ml Output Total 500 ml Balance 520 ml 815 ml Intake Oral 240 ml 220 ml IV Total 780 ml 595 ml Output Urine Total 500 ml # Voids 5 Laboratory Tests 03/04/18 20:50: Erythrocyte Sedimentation Rate 21H, Hemoglobin A1c 5.3, Vitamin B12 Level 699, Vitamin D 25-Hydroxy [Pending], 25-Hydroxy Vitamin D2 [Pending], 25-Hydroxy Vitamin D3 [Pending], Folate 16.1, Thyroid Stimulating Hormone (TSH) 2.962, Rapid Plasma Reagin [Pending] Height (Feet): 5 Height (Inches): 8.00 Weight (Pounds): 170 Faviola Soliman MD Mar 05, 2018 12:40
[2018-03-05] MEDS ORDERED: Haloperidol Decanoate 50mg Inj IM ONE (13:30)
--- NOTE | 2018-03-05 13:52 | General Progress Note ---
Assessment/Plan Assessment/Plan encephalopathy due to [facility] Anxiety d/o Ativan prn Risperdal 1mg qhs the pt received a cocktail Subjective Date patient seen: Mar 05, 2018 Neurologic/Psychiatric: Reports: anxiety, depressed, emotional problems Allergies: Coded Allergies: No Known Allergies (Unverified , 03/02/18) Subjective more agitated Objective Last 24 Hour Vital Signs Date Time Temp Pulse Resp B/P (MAP) Pulse Ox O2 Delivery O2 Flow Rate FiO2 03/05/18 11:46 97.0 93 20 134/95 (108) 96 97.0 03/05/18 09:00 Room Air 03/05/18 07:59 97.7 100 20 123/80 (94) 100 97.7 03/05/18 04:11 98.2 83 18 141/97 (112) 96 98.2 03/04/18 21:00 Room Air 03/04/18 20:00 97.7 92 18 142/97 (112) 94 97.7 03/04/18 15:40 97.0 82 18 130/89 (103) 95 97.0 Intake and Output 03/04/18 03/05/18 19:00 07:00 Intake Total 1020 ml 815 ml Output Total 500 ml Balance 520 ml 815 ml Intake Oral 240 ml 220 ml IV Total 780 ml 595 ml Output Urine Total 500 ml # Voids 5 Laboratory Tests 03/04/18 20:50: Erythrocyte Sedimentation Rate 21H, Hemoglobin A1c 5.3, Vitamin B12 Level 699, Vitamin D 25-Hydroxy [Pending], 25-Hydroxy Vitamin D2 [Pending], 25-Hydroxy Vitamin D3 [Pending], Folate 16.1, Thyroid Stimulating Hormone (TSH) 2.962, Rapid Plasma Reagin [Pending] Height (Feet): 5 Height (Inches): 8.00 Weight (Pounds): 170 General Appearance: no apparent distress, alert, confused, agitated Faviola Soliman MD Mar 05, 2018 13:52
[2018-03-05 16:25] VITALS: BP 153/86
--- NOTE | 2018-03-05 16:41 | Neurology Progress Note ---
Interim History Interim History Interim History Mr. Rocha feels well. He was agitated earlier and had to be sedated. He can barely keep his eyes open if not constantly stimulated. He denies any new neurologic symptoms. He continues to be cognitively impoverished. He continues to be aphasic. Review of Systems Neuro Review of Systems Unable to obtain. Objective Physical Exam Last Vital Signs Date Time Temp Pulse Resp B/P (MAP) Pulse Ox O2 Delivery O2 Flow Rate FiO2 03/05/18 16:25 98.6 85 20 153/86 (108) 95 98.6 03/05/18 09:00 Room Air 03/02/18 18:18 2.0 Laboratory Tests Test 03/04/18 20:50 Erythrocyte Sedimentation Rate 21 MM/HR (0-20) H Hemoglobin A1c 5.3 % (4.3-6.0) Vitamin B12 Level 699 PG/ML (193-986) Vitamin D 25-Hydroxy Pending 25-Hydroxy Vitamin D2 Pending 25-Hydroxy Vitamin D3 Pending Folate 16.1 NG/ML (8.6-58.9) Thyroid Stimulating Hormone (TSH) 2.962 uiU/mL (0.358-3.740) Rapid Plasma Reagin Pending Neurologic Exam Objective PHYSICAL EXAMINATION: GENERAL: He is a well-developed, well-nourished, gentleman, lying in bed, in no acute distress. HEAD: Normocephalic and atraumatic. EENT: Examination benign. NECK: No neck rigidity was observed. NEUROLOGICAL EXAMINATION: MENTAL STATUS EXAMINATION: He was drowsy but could be aroused if constantly stimulated. He would go to sleep if not engaged. He was oriented to self only. He was significantly aphasic making further mental status testing quite difficult. He was unable to repeat 3 words and could not remember them in 1 minute and 3 minutes. He was unable to tell me who the present President was and who prior presidents were. He was unable to do simple mathematical problems. He was unable to do simple visuospatial problems. SPEECH: He had a moderate dysarthria. LANGUAGE: He had problems with comprehension, repetition, naming and expression of language. CRANIAL NERVE EXAMINATION: II: The visual jurado were intact on confrontation testing. III, IV & : The external ocular movements were full and the pupils 3 mm in diameter, equal, round, regular, and reactive to light. V: He had normal facial sensations and the temporales, masseters, and pterygoids function normally. VII: He had normal facial expressions and no facial asymmetry. VIII: He was able to hear well bilaterally and had no nystagmus. IX: The palate moved symmetrically on phonation. X: He had no hoarseness of voice. XI: The sternocleidomastoids and trapezii functioned normally. XII: The tongue was in the midline without any fasciculations or atrophy. MOTOR SYSTEM: The tone was normal in all four extremities. Examination of muscle mass revealed no focal wasting. Examination of power revealed G 5/5 power. SENSORY EXAMINATION: He was unable to cooperate for sensory testing, but he did feel painful stimuli in all four extremities. REFLEXES: 1++ and bilaterally symmetrical at the biceps, triceps, brachioradialis, and knees, 0 at both ankles. The plantar responses were flexor bilaterally. COORDINATION, STANCE & GAIT: Could not be tested. Impression/Recommendations Diagnostic Impression 1. Mr. Govind Rocha is an 82-year-old, right-handed, gentleman with a nebulous past history who lives in a custodial and was noted to be increasingly confused and agitated exhibiting behavior consistent with failure to thrive. On being evaluated in the emergency room, he was found to be dehydrated and had a pneumonia and urinary tract infection. 2. He feels well. He was agitated earlier and had to be sedated. He can barely keep his eyes open if not constantly stimulated. He denies any new neurologic symptoms. He continues to be cognitively impoverished. He continues to be aphasic. 3. On neurological examination at this time, he is drowsy but can be aroused if constantly stimulated. He goes to sleep if not engaged. He is severely aphasic making further mental status testing quite difficult. He demonstrates significant problems with memory, visuospatial function, higher cognitive function, and language. He moves all four extremities with good strength and his cranial nerves do not reveal any asymmetries. The deep tendon reflexes are symmetric, but globally diminished. 4. An MRI scan of the brain performed on 03/04/2018 reveals significant atrophy and moderate deep white matter changes, however, no acute pathology is seen. 5. Laboratory data on admission revealed that his WBC count was elevated to 15, 200 and his hemoglobin was up at 16.3. The chemistry panel revealed that his BUN was elevated to 19. In addition, his total bilirubin was elevated to 1.3, AST elevated at 45, alkaline phosphatase elevated at 127 and the CK was elevated at 684. His urinalysis revealed 1+ leukocyte esterase, 15-20 RBCs, and 2-4 WBCs per high-power field. His B12, folate, TSH and ESR are within normal limits. 6. 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 The encephalopathy is most probably related to his acute infectious processes, namely the pneumonia and urinary tract infection, and in addition the dehydration could also have contributed. Recommendations 1. Continue present management. 2. Treatment of infectious processes as being done right at this point in time. 3. Behavior modification as per Dr. Soliman. 4. The patient should be kept as active as possible during the day. Ceci Egan M.D., M.S.P.HCECI STODDARD Mar 05, 2018 16:41
[2018-03-05 19:33] VITALS: BP 147/98
[2018-03-06] MEDS: Potassium Chloride 30 MEQ in 1/2 NS 1000ml 1,000 ML IV SCH ×2 (00:22→17:05)
[2018-03-06 00:41] VITALS: BP 124/93
[2018-03-06 04:17] VITALS: BP 136/92
[2018-03-06 08:00] VITALS: BP 121/88
[2018-03-06] MEDS: Heparin 5000 units/ml inj SUBQ SCH ×2 (08:41→19:59)
--- NOTE | 2018-03-06 10:28 | General Progress Note ---
Assessment/Plan Assessment/Plan MRI + Neuro noted. Severe dementia. Unstable gait. Pneumonia - IV Abx. DW Speech Thrapy. Needs 1;1 feeder. May need SNF. To [facility] staff. Subjective Allergies: Coded Allergies: No Known Allergies (Unverified , 03/02/18) Subjective No new c/o. Very confused! Objective Last 24 Hour Vital Signs Date Time Temp Pulse Resp B/P (MAP) Pulse Ox O2 Delivery O2 Flow Rate FiO2 03/06/18 09:00 Room Air 03/06/18 08:00 97.7 78 18 121/88 (99) 98 97.7 03/06/18 04:17 96.8 84 16 136/92 (107) 94 96.8 03/06/18 00:41 97.7 93 16 124/93 (103) 95 97.7 03/05/18 21:00 Room Air 03/05/18 19:33 98.1 93 16 147/98 (114) 92 98.1 03/05/18 16:25 98.6 85 20 153/86 (108) 95 98.6 03/05/18 11:46 97.0 93 20 134/95 (108) 96 97.0 Intake and Output 03/05/18 03/06/18 19:00 07:00 Intake Total 965 ml 750 ml Balance 965 ml 750 ml Intake Oral 120 ml IV Total 845 ml 750 ml # Voids 3 Height (Feet): 5 Height (Inches): 8.00 Weight (Pounds): 165 Objective Cv RR Lungs few B ronchi Abd SNT. Bs + E No CCE . Neuro confused. [place]. Unfocused. Jose Wilkinson MD Mar 06, 2018 10:27
[2018-03-06 11:42] VITALS: BP 127/92
--- NOTE | 2018-03-06 14:42 | General Progress Note ---
Assessment/Plan Status: stable, progressing Assessment/Plan encephalopathy due to [facility] Anxiety d/o Ativan prn risprdal 1mg qhs Subjective Date patient seen: Mar 06, 2018 Neurologic/Psychiatric: Reports: anxiety, depressed Allergies: Coded Allergies: No Known Allergies (Unverified , 03/02/18) Subjective less agitated manageable Objective Last 24 Hour Vital Signs Date Time Temp Pulse Resp B/P (MAP) Pulse Ox O2 Delivery O2 Flow Rate FiO2 03/06/18 11:42 97.2 82 18 127/92 (104) 99 97.2 03/06/18 09:00 Room Air 03/06/18 08:00 97.7 78 18 121/88 (99) 98 97.7 03/06/18 04:17 96.8 84 16 136/92 (107) 94 96.8 03/06/18 00:41 97.7 93 16 124/93 (103) 95 97.7 03/05/18 21:00 Room Air 03/05/18 19:33 98.1 93 16 147/98 (114) 92 98.1 03/05/18 16:25 98.6 85 20 153/86 (108) 95 98.6 Intake and Output 03/05/18 03/06/18 19:00 07:00 Intake Total 965 ml 750 ml Balance 965 ml 750 ml Intake Oral 120 ml IV Total 845 ml 750 ml # Voids 3 Height (Feet): 5 Height (Inches): 8.00 Weight (Pounds): 165 General Appearance: WD/WN, no apparent distress, alert, confused Faviola Soliman MD Mar 06, 2018 14:42
[2018-03-06 16:00] VITALS: BP 129/85
[2018-03-06] MEDS ORDERED: Pneumococcal Vaccine 25mcg/0.5ml IM ONE (16:45)
--- NOTE | 2018-03-06 18:06 | Neurology Progress Note ---
Interim History Interim History Interim History Mr. Rocha feels well. He was trying to get out of the bed to go to the bathroom when I went into his room. His IV was constantin pulled and his bed alarm was going off. He has been calm for most of the day today. He denies any new neurologic symptoms. He continues to be cognitively impoverished. He continues to be aphasic. Review of Systems Neuro Review of Systems Unable to obtain. Objective Physical Exam Last Vital Signs Date Time Temp Pulse Resp B/P (MAP) Pulse Ox O2 Delivery O2 Flow Rate FiO2 03/06/18 16:00 97.9 100 20 129/85 (100) 95 97.9 03/06/18 09:00 Room Air 03/02/18 18:18 2.0 Neurologic Exam Objective PHYSICAL EXAMINATION: GENERAL: He is a well-developed, well-nourished, gentleman, lying in bed, in no acute distress. HEAD: Normocephalic and atraumatic. EENT: Examination benign. NECK: No neck rigidity was observed. NEUROLOGICAL EXAMINATION: MENTAL STATUS EXAMINATION: He was awake and alert. He was oriented to self only. He was significantly aphasic making further mental status testing quite difficult. He was unable to repeat 3 words and could not remember them in 1 minute and 3 minutes. He was unable to tell me who the present President was and who prior presidents were. He was unable to do simple mathematical problems. He was unable to do simple visuospatial problems. SPEECH: He had a moderate dysarthria. LANGUAGE: He had problems with comprehension, repetition, naming and expression of language. CRANIAL NERVE EXAMINATION: II: The visual jurado were intact on confrontation testing. III, IV & : The external ocular movements were full and the pupils 3 mm in diameter, equal, round, regular, and reactive to light. V: He had normal facial sensations and the temporales, masseters, and pterygoids function normally. VII: He had normal facial expressions and no facial asymmetry. VIII: He was able to hear well bilaterally and had no nystagmus. IX: The palate moved symmetrically on phonation. X: He had no hoarseness of voice. XI: The sternocleidomastoids and trapezii functioned normally. XII: The tongue was in the midline without any fasciculations or atrophy. MOTOR SYSTEM: The tone was normal in all four extremities. Examination of muscle mass revealed no focal wasting. Examination of power revealed G 5/5 power. SENSORY EXAMINATION: He was unable to cooperate for sensory testing, but he did feel painful stimuli in all four extremities. REFLEXES: 1++ and bilaterally symmetrical at the biceps, triceps, brachioradialis, and knees, 0 at both ankles. The plantar responses were flexor bilaterally. COORDINATION, STANCE & GAIT: Could not be tested. Impression/Recommendations Diagnostic Impression 1. Mr. Govind Rocha is an 82-year-old, right-handed, gentleman with a nebulous past history who lives in a skilled nursing and was noted to be increasingly confused and agitated exhibiting behavior consistent with failure to thrive. On being evaluated in the emergency room, he was found to be dehydrated and had a pneumonia and urinary tract infection. 2. He feels well. He was trying to get out of the bed to go to the bathroom when I went into his room. His IV was constantin pulled and his bed alarm was going off. He has been calm for most of the day today. He denies any new neurologic symptoms. He continues to be cognitively impoverished. He continues to be aphasic. 3. On neurological examination at this time, he is awake and alert. He is severely aphasic making further mental status testing quite difficult. He demonstrates significant problems with memory, visuospatial function, higher cognitive function, and language. He moves all four extremities with good strength and his cranial nerves do not reveal any asymmetries. The deep tendon reflexes are symmetric, but globally diminished. 4. An MRI scan of the brain performed on 03/04/2018 reveals significant atrophy and moderate deep white matter changes, however, no acute pathology is seen. 5. Laboratory data on admission revealed that his WBC count was elevated to 15, 200 and his hemoglobin was up at 16.3. The chemistry panel revealed that his BUN was elevated to 19. In addition, his total bilirubin was elevated to 1.3, AST elevated at 45, alkaline phosphatase elevated at 127 and the CK was elevated at 684. His urinalysis revealed 1+ leukocyte esterase, 15-20 RBCs, and 2-4 WBCs per high-power field. His B12, folate, TSH and ESR are within normal limits. 6. 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 The encephalopathy is most probably related to his acute infectious processes, namely the pneumonia and urinary tract infection, and in addition the dehydration could also have contributed. Recommendations 1. Continue present management. 2. Treatment of infectious processes as being done right at this point in time. 3. Behavior modification as per Dr. Soliman. 4. The patient should be kept as active as possible during the day. Ceci Aguilar M.D., M.S.P.H. CECI AGUILAR Mar 06, 2018 18:06
[2018-03-06 19:39] VITALS: BP 116/78
[2018-03-06] MEDS: LORazepam 1mg tab ORAL PRN (21:48)
[2018-03-07 00:24] VITALS: BP 124/79
[2018-03-07 03:54] VITALS: BP 113/89
[2018-03-07] MEDS: LORazepam 1mg tab ORAL PRN ×2 (04:22→17:39)
[2018-03-07 08:07] VITALS: BP 145/76
[2018-03-07] MEDS: Heparin 5000 units/ml inj SUBQ SCH ×2 (08:49→21:34)
--- NOTE | 2018-03-07 09:56 | Neurology Progress Note ---
Interim History Interim History Interim History Mr. Rocha feels very well. He says he slept well last night. He has been calm today. He denies any new neurologic symptoms. He continues to be cognitively impoverished. He continues to be aphasic. He has been eating well. He has not been out of bed much. Review of Systems Neuro Review of Systems Unable to obtain. Objective Physical Exam Last Vital Signs Date Time Temp Pulse Resp B/P (MAP) Pulse Ox O2 Delivery O2 Flow Rate FiO2 03/07/18 09:00 Room Air 03/07/18 08:07 97.8 104 20 145/76 (99) 92 97.8 03/02/18 18:18 2.0 Neurologic Exam Objective PHYSICAL EXAMINATION: GENERAL: He is a well-developed, well-nourished, gentleman, lying in bed, in no acute distress. HEAD: Normocephalic and atraumatic. EENT: Examination benign. NECK: No neck rigidity was observed. NEUROLOGICAL EXAMINATION: MENTAL STATUS EXAMINATION: He was awake and alert. He was oriented to self only. He was significantly aphasic making further mental status testing quite difficult. He was unable to repeat 3 words and could not remember them in 1 minute and 3 minutes. He was unable to tell me who the present President was and who prior presidents were. He was unable to do simple mathematical problems. He was unable to do simple visuospatial problems. SPEECH: He had a moderate dysarthria. LANGUAGE: He had problems with comprehension, repetition, naming and expression of language. CRANIAL NERVE EXAMINATION: II: The visual jurado were intact on confrontation testing. III, IV & : The external ocular movements were full and the pupils 3 mm in diameter, equal, round, regular, and reactive to light. V: He had normal facial sensations and the temporales, masseters, and pterygoids function normally. VII: He had normal facial expressions and no facial asymmetry. VIII: He was able to hear well bilaterally and had no nystagmus. IX: The palate moved symmetrically on phonation. X: He had no hoarseness of voice. XI: The sternocleidomastoids and trapezii functioned normally. XII: The tongue was in the midline without any fasciculations or atrophy. MOTOR SYSTEM: The tone was normal in all four extremities. Examination of muscle mass revealed no focal wasting. Examination of power revealed G 5/5 power. SENSORY EXAMINATION: He was unable to cooperate for sensory testing, but he did feel painful stimuli in all four extremities. REFLEXES: 1++ and bilaterally symmetrical at the biceps, triceps, brachioradialis, and knees, 0 at both ankles. The plantar responses were flexor bilaterally. COORDINATION, STANCE & GAIT: Could not be tested. Impression/Recommendations Diagnostic Impression 1. Mr. Govind Rocha is an 82-year-old, right-handed, gentleman with a nebulous past history who [facility] and was noted to be increasingly confused and agitated exhibiting behavior consistent with failure to thrive. On being evaluated in the emergency room, he was found to be dehydrated and had a pneumonia and urinary tract infection. 2. He feels very well. He says he slept well last night. He has been calm today. He denies any new neurologic symptoms. He continues to be cognitively impoverished. He continues to be aphasic. He has been eating well. He has not been out of bed much. 3. On neurological examination at this time, he is awake and alert. He is severely aphasic making further mental status testing quite difficult. He demonstrates significant problems with memory, visuospatial function, higher cognitive function, and language. He moves all four extremities with good strength and his cranial nerves do not reveal any asymmetries. The deep tendon reflexes are symmetric, but globally diminished. 4. An MRI scan of the brain performed on 03/04/2018 reveals significant atrophy and moderate deep white matter changes, however, no acute pathology is seen. 5. Laboratory data on admission revealed that his WBC count was elevated to 15, 200 and his hemoglobin was up at 16.3. The chemistry panel revealed that his BUN was elevated to 19. In addition, his total bilirubin was elevated to 1.3, AST elevated at 45, alkaline phosphatase elevated at 127 and the CK was elevated at 684. His urinalysis revealed 1+ leukocyte esterase, 15-20 RBCs, and 2-4 WBCs per high-power field. His B12, folate, TSH and ESR are within normal limits. 6. 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 The encephalopathy is most probably related to his acute infectious processes, namely the pneumonia and urinary tract infection, and in addition the dehydration could also have contributed. Recommendations 1. Continue present management. 2. Treatment of infectious processes as being done right at this point in time. 3. Behavior modification as per Dr. Soliman. 4. The patient should be kept as active as possible during the day. Ceci Aguilar M.D., M.S.P.H. CECI AGUILAR Mar 07, 2018 09:56
[2018-03-07] MEDS: Potassium Chloride 30 MEQ in 1/2 NS 1000ml 1,000 ML IV SCH (10:30)
[2018-03-07] MEDS ORDERED: LORazepam Inj 2mg/ml 1ml IM SCH (11:15)
[2018-03-07] MEDS ORDERED: Haloperidol 5mg/ml Inj IM SCH (11:15)
[2018-03-07] MEDS ORDERED: DiphenhydrAMINE 50mg/ml Inj IM SCH (11:15)
--- NOTE | 2018-03-07 11:27 | General Progress Note ---
Assessment/Plan Assessment/Plan MRI + Neuro noted. Severe dementia. Unstable gait. Pneumonia - IV Abx. DW Speech Thrapy. Needs 1;1 feeder. May need SNF. To Board and Care staff. Allergic Drug Eruption - DC Abx. Rx with local steroid. Subjective Allergies: Coded Allergies: No Known Allergies (Unverified , 03/02/18) Subjective Back Rash. Very confused! Objective Last 24 Hour Vital Signs Date Time Temp Pulse Resp B/P (MAP) Pulse Ox O2 Delivery O2 Flow Rate FiO2 03/07/18 09:00 Room Air 03/07/18 08:07 97.8 104 20 145/76 (99) 92 97.8 03/07/18 03:54 97.7 106 18 113/89 (97) 92 97.7 03/07/18 00:24 96.1 87 16 124/79 (94) 94 96.1 03/06/18 21:00 Room Air 03/06/18 19:39 98.1 83 17 116/78 (91) 95 98.1 03/06/18 16:00 97.9 100 20 129/85 (100) 95 97.9 03/06/18 11:42 97.2 82 18 127/92 (104) 99 97.2 Intake and Output 03/06/18 03/07/18 19:00 07:00 Intake Total 780 ml 815 ml Balance 780 ml 815 ml IV Total 780 ml 815 ml # Voids 4 5 Height (Feet): 5 Height (Inches): 8.00 Weight (Pounds): 165 Objective Maculo papular rash on back and inner thighs. Cv RR Lungs few B ronchi Abd SNT. Bs + E No CCE . Neuro confused. [place]abb[place] gate. Unfocused. Jose Wilkinson MD Mar 07, 2018 11:26
[2018-03-07 11:37] VITALS: BP 137/80
--- NOTE | 2018-03-07 13:13 | General Progress Note ---
Assessment/Plan Status: stable Assessment/Plan encephalopathy due to [facility] [place] Anxiety d/o Ativan prn dc risprdal 1mg qhs seroquel 25mg tid Subjective Date patient seen: Mar 07, 2018 Neurologic/Psychiatric: Reports: anxiety, depressed, emotional problems Allergies: Coded Allergies: No Known Allergies (Unverified , 03/02/18) Subjective more agitated got a cocktail shot Objective Last 24 Hour Vital Signs Date Time Temp Pulse Resp B/P (MAP) Pulse Ox O2 Delivery O2 Flow Rate FiO2 03/07/18 11:37 97.5 91 20 137/80 (99) 95 97.5 03/07/18 09:00 Room Air 03/07/18 08:07 97.8 104 20 145/76 (99) 92 97.8 03/07/18 03:54 97.7 106 18 113/89 (97) 92 97.7 03/07/18 00:24 96.1 87 16 124/79 (94) 94 96.1 03/06/18 21:00 Room Air 03/06/18 19:39 98.1 83 17 116/78 (91) 95 98.1 03/06/18 16:00 97.9 100 20 129/85 (100) 95 97.9 Intake and Output 03/06/18 03/07/18 19:00 07:00 Intake Total 780 ml 815 ml Balance 780 ml 815 ml IV Total 780 ml 815 ml # Voids 4 5 Height (Feet): 5 Height (Inches): 8.00 Weight (Pounds): 165 General Appearance: no apparent distress, alert, confused, agitated Faviola Soliman MD Mar 07, 2018 13:13
[2018-03-07] MEDS: Triamcinolone 0.1% 15gm Cr TOPIC SCH ×2 (13:55→17:39)
[2018-03-07 15:46] VITALS: BP 144/91
[2018-03-07 19:37] VITALS: BP 152/88
[2018-03-08] MEDS: LORazepam 1mg tab ORAL PRN (00:03)
[2018-03-08 00:52] VITALS: BP 144/97
[2018-03-08] MEDS: Potassium Chloride 30 MEQ in 1/2 NS 1000ml 1,000 ML IV SCH (02:30)
[2018-03-08 04:44] VITALS: BP 120/60
[2018-03-08 08:00] VITALS: BP 125/74
--- NOTE | 2018-03-08 08:10 | General Progress Note ---
Assessment/Plan Assessment/Plan MRI + Neuro noted. Severe dementia. Unstable gait. Pneumonia - IV Abx. DW Speech Thrapy. Needs 1;1 feeder. May need SNF. To Board and Care staff. Allergic Drug Eruption - DC Abx. Rx with local steroid. DC to [facility] Subjective Allergies: Coded Allergies: No Known Allergies (Unverified , 03/02/18) Subjective Diminished Back Rash. Very confused! Objective Last 24 Hour Vital Signs Date Time Temp Pulse Resp B/P (MAP) Pulse Ox O2 Delivery O2 Flow Rate FiO2 03/08/18 04:44 97.3 81 18 120/60 (80) 95 97.3 03/08/18 00:52 97.7 85 19 144/97 (113) 93 97.7 03/07/18 21:00 Room Air 03/07/18 19:37 97.7 96 15 152/88 (109) 93 97.7 03/07/18 15:46 98.0 95 20 144/91 (108) 97 98.0 03/07/18 11:37 97.5 91 20 137/80 (99) 95 97.5 03/07/18 09:00 Room Air Intake and Output 03/07/18 03/08/18 19:00 07:00 Intake Total 1435 ml 770 ml Balance 1435 ml 770 ml Intake Oral 720 ml 120 ml IV Total 715 ml 650 ml # Voids 3 3 Height (Feet): 5 Height (Inches): 8.00 Weight (Pounds): 165 Objective Diminished Maculo papular rash on back and inner thighs. Cv RR Lungs few B ronchi Abd SNT. Bs + E No CCE . Neuro confused. [place]abb[place] gate. Unfocused. Jose Wilkinson MD Mar 08, 2018 08:10
[2018-03-08] MEDS ORDERED: ATIVAN1 MG ORAL (08:13)
[2018-03-08] MEDS ORDERED: KENALOG 0.1% CR15 GM TOPIC (08:13)
[2018-03-08] MEDS ORDERED: SEROQUEL25 MG ORAL (08:13)
[2018-03-08] MEDS: Triamcinolone 0.1% 15gm Cr TOPIC SCH ×2 (09:34→13:00)
[2018-03-08] MEDS: Heparin 5000 units/ml inj SUBQ SCH (09:34)
[2018-03-08 12:00] VITALS: BP 129/62
--- NOTE | 2018-03-08 12:01 | Neurology Progress Note ---
Interim History Interim History Interim History Mr. Rocha feels well. He says he slept well last night. He has been calm. He denies any new neurologic symptoms. He continues to be cognitively impoverished. He continues to be aphasic. He has been eating well. He has not been out of bed much. Plans are to go back to his board and skilled nursing today. Review of Systems Neuro Review of Systems Unable to obtain. Objective Physical Exam Last Vital Signs Date Time Temp Pulse Resp B/P (MAP) Pulse Ox O2 Delivery O2 Flow Rate FiO2 03/08/18 08:00 97.0 73 18 125/74 (91) 95 97.0 03/07/18 21:00 Room Air 03/02/18 18:18 2.0 Neurologic Exam Objective PHYSICAL EXAMINATION: GENERAL: He is a well-developed, well-nourished, gentleman, lying in bed, in no acute distress. HEAD: Normocephalic and atraumatic. EENT: Examination benign. NECK: No neck rigidity was observed. NEUROLOGICAL EXAMINATION: MENTAL STATUS EXAMINATION: He was awake and alert. He was oriented to self only. He was significantly aphasic making further mental status testing quite difficult. He was unable to repeat 3 words and could not remember them in 1 minute and 3 minutes. He was unable to tell me who the present President was and who prior presidents were. He was unable to do simple mathematical problems. He was unable to do simple visuospatial problems. SPEECH: He had a moderate dysarthria. LANGUAGE: He had problems with comprehension, repetition, naming and expression of language. CRANIAL NERVE EXAMINATION: II: The visual jurado were intact on confrontation testing. III, IV & : The external ocular movements were full and the pupils 3 mm in diameter, equal, round, regular, and reactive to light. V: He had normal facial sensations and the temporales, masseters, and pterygoids function normally. VII: He had normal facial expressions and no facial asymmetry. VIII: He was able to hear well bilaterally and had no nystagmus. IX: The palate moved symmetrically on phonation. X: He had no hoarseness of voice. XI: The sternocleidomastoids and trapezii functioned normally. XII: The tongue was in the midline without any fasciculations or atrophy. MOTOR SYSTEM: The tone was normal in all four extremities. Examination of muscle mass revealed no focal wasting. Examination of power revealed G 5/5 power. SENSORY EXAMINATION: He was unable to cooperate for sensory testing, but he did feel painful stimuli in all four extremities. REFLEXES: 1++ and bilaterally symmetrical at the biceps, triceps, brachioradialis, and knees, 0 at both ankles. The plantar responses were flexor bilaterally. COORDINATION, STANCE & GAIT: Could not be tested. Impression/Recommendations Diagnostic Impression 1. Mr. Govind Rocha is an 82-year-old, right-handed, gentleman with a nebulous past history who lives in a [place] [facility] and was noted to be increasingly confused and agitated exhibiting behavior consistent with failure to thrive. On being evaluated in the emergency room, he was found to be dehydrated and had a pneumonia and urinary tract infection. 2. He feels well. He says he slept well last night. He has been calm. He denies any new neurologic symptoms. He continues to be cognitively impoverished. He continues to be aphasic. He has been eating well. He has not been out of bed much. Plans are to go back to his board and skilled nursing today. 3. On neurological examination at this time, he is awake and alert. He is severely aphasic making further mental status testing quite difficult. He demonstrates significant problems with memory, visuospatial function, higher cognitive function, and language. He moves all four extremities with good strength and his cranial nerves do not reveal any asymmetries. The deep tendon reflexes are symmetric, but globally diminished. 4. An MRI scan of the brain performed on 03/04/2018 reveals significant atrophy and moderate deep white matter changes, however, no acute pathology is seen. 5. Laboratory data on admission revealed that his WBC count was elevated to 15, 200 and his hemoglobin was up at 16.3. The chemistry panel revealed that his BUN was elevated to 19. In addition, his total bilirubin was elevated to 1.3, AST elevated at 45, alkaline phosphatase elevated at 127 and the CK was elevated at 684. His urinalysis revealed 1+ leukocyte esterase, 15-20 RBCs, and 2-4 WBCs per high-power field. His B12, folate, TSH and ESR are within normal limits. 6. 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 The encephalopathy is most probably related to his acute infectious processes, namely the pneumonia and urinary tract infection, and in addition the dehydration could also have contributed. He has been treated for his encephalopathic processes. Recommendations 1. Agree with plans to send back to [facility]. 2. Behavior modification as per Dr. Soliman. 3. Keep patient physically and cognitively engaged. Ceci Aguilar M.D., M.S.[facility]. CECI AGUILAR Mar 08, 2018 12:01
--- NOTE | 2018-03-09 22:59 | General Progress Note ---
Assessment/Plan Assessment/Plan encephalopathy due to [facility] [place] Anxiety d/o Ativan prn dc risprdal 1mg qhs seroquel 25mg tid Subjective Date patient seen: Mar 08, 2018 Neurologic/Psychiatric: Reports: anxiety, depressed, emotional problems Allergies: Coded Allergies: No Known Allergies (Unverified , 03/02/18) Subjective more agitated got a cocktail shot Objective Intake and Output 03/08/18 03/09/18 19:00 07:00 Intake Total 240 ml Balance 240 ml Intake Oral 240 ml # Voids 2 Height (Feet): 5 Height (Inches): 8.00 Weight (Pounds): 165 Faviola Soliman MD Mar 09, 2018 22:59
--- NOTE | 2018-03-11 12:46 | Discharge Summary ---
Discharge Summary Discharge Summary _ DATE OF ADMISSION: 03/02/2018 DATE OF DISCHARGE :03/08/2018 REASON FOR ADMISSION: 82 years old male with history of hypertension and dementia , was brought from assisted living after fall two days ago. There was no report of chest pain or loss of consciousness. Patient was unable to provide any significant history o given underlying dementia. Vital signs revealed no fever, mild tachycardia 108. Patient was placed on supplemental oxygen 2 L via nasal cannula with pulse oximetry reaching 94%. CT of the head revealed no acute intracranial pathology. CT of the pelvis showed no acute traumatic findings in the pelvis. No displaced fracture. Laboratory workup revealed leukocytosis WBC 16.2, stable hemoglobin and hematocrit. Stable electrolytes. BUN 19 creatinine 1.1 ,. Glucose 118. CK 684. Troponin negative, EKG revealed sinus rhythm, no acute ischemic changes. chest x-ray showed subsegmental atelectasis versus infiltrate in the left lung base. Patient admitted with diagnoses status post fall , pneumonia, dehydration, rule out CVA. CONSULTANTS: neurologist Dr. Egan psychiatrist [facility]: Patient admitted. Patient started on IV fluids and empiric antibiotic. Supplemental oxygen provided as needed to keep pulse oximetry above 92%. Pulmonary toilet was on standby as needed. Blood culture were negative. Leukocytosis resolved. Patient developed topical allergic drug reaction. Patient status post antibiotics treatment for 5 days. Patient started on topical steroid treatment for allergic drug reaction. Renal parameters and electrolytes were closely monitored, nephrotoxins were avoided. Neurologist closely followed. MRI of the brain revealed significant atrophy and moderate deep white matter changes, however no acute intracranial pathology was seen. According to neurologist, patient history and neurological examination were most compatible with acute encephalopathy on underlying dementia . Encephalopathy was likely related to acute infectious process and dehydration. Patient was working with physical and occupational therapists. Fall precautions were maintained. Swallow evaluation revealed dysphagia and risk for silent aspiration. Diet started as per speech therapist recommendations with strict aspiration/ reflux precautions and one-to-one feeding. Psychiatrist seen and evaluated patient, diagnosed patient with encephalopathy , secondary to general medical condition. Psychiatrist optimized psychiatric medication regimen. DVT prophylaxis provided . Pain management provided. Bowel regimen instituted. Supportive care provided. Patient clinically improved and was ready for transfer back to assisted living. FINAL DIAGNOSES: Acute encephalopathy, likely secondary to infectious process, on underlying dementia Pneumonia Dehydration Dysphagia Anxiety disorder Allergic drug reaction DISCHARGE MEDICATIONS: See Medication Reconciliation list. DISCHARGE INSTRUCTIONS: Patient was discharged to assisted living. Follow up with primary care provider in one week. I have been assigned to dictate discharge summary for this account. I was not involved in the patient's management. Danielle Diaz NP Mar 11, 2018 12:45
== END 2018-03-08 13:30 | disposition home or self-care (01) | DRG 193 ==
LOC: EDBD 12:56 → EMR 13:17 → 4W 14:54 → EDBEDREQ 17:34 → 4W 03-03 18:34
DX: J18.9 Pneumonia, unspecified organism (principal); G93.40 Encephalopathy, unspecified; R47.01 Aphasia; N39.0 Urinary tract infection, site not specified; I10 Essential (primary) hypertension; F03.90 Unspecified dementia, unspecified severity, without behavioral disturbance, psychotic disturbance, mood disturbance, and anxiety; E86.0 Dehydration; R13.10 Dysphagia, unspecified; F41.9 Anxiety disorder, unspecified; Z91.81 History of falling; R62.7 Adult failure to thrive; R26.81 Unsteadiness on feet; L23.3 Allergic contact dermatitis due to drugs in contact with skin; T50.905A Adverse effect of unspecified drugs, medicaments and biological substances, initial encounter
CPT/HCPCS: 36415; 70450; 70551; 71045; 72192; 74230; 80048; 80053; 81003; 82248; 82306; 82550; 82553; 82607; 82746; 82962; 83036; 83605; 83690; 83735; 84443; 84484; 84550; 85007; 85025; 85651; 86592; 87040; 87081; 90732; 93005; 99285